=== PATIENT | female | born 1945 | race Caucasian/White ===

== ENCOUNTER 2016-11-04 08:34 | Day surgery (SDC) | payer OTHER ==
[2016-10-27 15:46] VITALS: BMI 21.2
[2016-11-04] MEDS ORDERED: LIDOCAINE HCL 1%, 10 MG/ML (20ML VIAL) ONE (09:11)
[2016-11-04] MEDS ORDERED: PROPOFOL 20 ML ONE (10:20)
[2016-11-04] MEDS ORDERED: SUCCINYLCHOLINE CHLORIDE 200 MG/10 ML VIAL ONE (10:20)
[2016-11-04] MEDS ORDERED: ONDANSETRON 4 MG/2 ML VIAL ONE (10:34)
[2016-11-04] MEDS ORDERED: ceFAZolin SODIUM 1 GM VIAL ONE (10:34)
[2016-11-04] MEDS ORDERED: DEXAMETHASONE SOD PHOSPHATE 4 MG/1 ML VIAL ONE (10:34)
[2016-11-04] MEDS ORDERED: ePHEDrine SULFATE 50 MG/1 ML AMPULE ONE (10:40)
[2016-11-04] MEDS ORDERED: PROMETHAZINE HCL 25 MG/1 ML VIAL IVPUSH PRN (11:12)
[2016-11-04] MEDS ORDERED: oxyCODONE HCL 5 MG TABLET PO PRN (11:12)
[2016-11-04] MEDS ORDERED: ONDANSETRON 4 MG/2 ML VIAL IVPUSH PRN (11:12)
[2016-11-04] MEDS ORDERED: LACTATED RINGERS SOLUTION 1,000 ML IV SCH (11:15)
[2016-11-04 13:09] VITALS: TEMP 98.2
[2016-11-04 13:30] VITALS: BP 109/55; PULSE 84
--- NOTE | 2016-11-05 08:23 | OP ---
DATE OF OPERATION: 11/04/2016 PREOPERATIVE DIAGNOSIS: Faulty spinal cord stimulator generator. POSTOPERATIVE DIAGNOSIS: Faulty spinal cord stimulator generator. PROCEDURE PERFORMED: Spinal cord stimulator generator exchange ([employer]). SURGEON: Dimitry Chong MD ANESTHESIA: General. INDICATIONS: Patient is a 71-year-old female with a prior history of chronic back pain. She has had a spinal cord stimulator working to good effect until she had a procedure done and the generator no longer worked. She is indicated for generator exchange. Risks, benefits, and alternatives were discussed, and informed consent was obtained. DESCRIPTION: The patient was brought into the operating room via stretcher, and general endotracheal anesthesia was administered by the anesthesiologist. The patient was transferred to the OR table into supine position. Prophylactic IV antibiotics were administered, and a timeout was performed. An incision was then made in the left lower quadrant of the abdomen where the implant is, over the prior incision. Dissection was carried down carefully, and the implant was removed. A new spinal cord stimulator generator was hooked up. It was tested, showing only 1 lead without adequate contact. We rearranged the generator again, getting the same result. This is likely due to scarring, and it is chronic. The wounds were then irrigated. The wires were then placed behind the spinal cord generator after locking of the leads. The deep dermal tissue approximated with 3-0 Vicryl suture. The skin was closed with a running 4-0 Biosyn suture, and Steri-Strips and Dermabond were placed. Sterile dressing was applied. The patient tolerated the procedure well, without complications. Bonnie [id number]
--- NOTE | 2016-11-06 08:46 | PATH ---
Surgical Pathology Report Patient Name: ILA GAMING Med. Rec. #: [id number] /Age/Gender: 1945 (Age: 71) / F Account: [id number] Location: [facility] AMBULATORY Taken: 11/04/2016 Received: 11/04/2016 Reported: 11/06/2016 Physicians: Dimitry Chong M.D. 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 Electronically Signed Mustapha Nunez M.D. Gross Description Received fresh labeled "explant generator spinal cord stimulator," is a 5.5 x 4.5 x 0[address]9 [address]an metallic device, consistent with a battery. The specimen has the following inscription: "[employer] precision IPG Model SC-1110 [id number]." No soft tissue is present. No sections are submitted, gross only. /11/05/2016 saudi11/05/2016
== END 2016-11-04 13:15 | disposition home or self-care (01) ==
LOC: FASU 08:34
PROVIDERS: ATTEND Orthopaedic Surgery Orthopaedic Surgery of the Spine
PROC: 0JH80BZ Insertion of Single Array Stimulator Generator into Abdomen Subcutaneous Tissue and Fascia, Open Approach (ICD-10-PCS; 2016-11-04)
PROC: 0JPT0MZ Removal of Stimulator Generator from Trunk Subcutaneous Tissue and Fascia, Open Approach (ICD-10-PCS; principal; 2016-11-04 10:38)
DX: T85.113A Breakdown (mechanical) of implanted electronic neurostimulator, generator, initial encounter (principal); M51.35 Other intervertebral disc degeneration, thoracolumbar region
CPT/HCPCS: 61885; C1767; 88300-TC; 94760